=== PATIENT | male | born 1955 | race Asian ===

== ENCOUNTER 2018-07-29 20:39 | Emergency (ER) | payer OTHER ==
[~2018-07-29] VITALS: Ht 175.3 cm; Wt 54.4 kg
[2018-07-29 20:41] VITALS: Ht 175.3 cm; Wt 54.4 kg
[2018-07-29 21:03] VITALS: BP 146/67
[2018-07-29 21:31] LABS: PLATELET COUNT 251 x10^3mcL (130-400); RED CELL DISTRIBUTION WIDTH 13.4 % (11.5-14.5)
[2018-07-29 21:34] LABS: UA SPECIFIC GRAVITY >=1.030 (1.005-1.035); microscopic required? YES; urine erythrocyte 2+ (NEGATIVE)
[2018-07-29 21:41] LABS: CALCIUM 7.4 mg/dL (8.5-10.1); CARBON DIOXIDE 12.3 mmol/L (21-32); CHLORIDE SERUM 85 mmol/L (98-107); CREATININE SERUM 1.8 mg/dL (0.7-1.3); GFR1 41 mL/min; GLUCOSE SERUM 312 mg/dL (74-106); POTASSIUM SERUM 4.7 mmol/L (3.5-5.1); SODIUM SERUM 129 mmol/L (136-145)
[2018-07-29 21:46] LABS: ALKALINE PHOSPHATASE 56 U/L (46-116); ALT/SGPT 43 U/L (16-63); AST/SGOT 82 U/L (15-37); BILIRUBIN TOTAL 0.59 mg/dL (0.20-1.00); TOTAL PROTEIN, SERUM 7.6 g/dL (6.4-8.2)
[2018-07-29 21:47] LABS: ALBUMIN 3.2 g/dL (3.4-5.0)
[2018-07-29 21:56] LABS: BAND NEUTROPHIL 8 % (0-10); BASOPHIL 0 % (0-2); MONOCYTE 5 % (0-7); PLATELET MORPHOLOGY PLATELETS NORMAL; SEGMENTED NEUTROPHILS 77 % (37-75); rbc morphology (normal/abnorm) NORMAL (NORMAL)
[2018-07-29 22:10] LABS: CK-MB 6.8 ng/mL (0-3.6)
[2018-07-29 22:25] LABS: AMPHETAMINE QUAL UR NONE DETECTED (See below)
[2018-07-29 23:05] VITALS: BP 94/40
[2018-07-30 02:00] VITALS: BP 100/48
== END 2018-07-30 02:00 | disposition short-term general hospital (02) ==
LOC: EDBD 20:39 → ED 20:39
PROVIDERS: Emergency Medicine
DX: I62.00 Nontraumatic subdural hemorrhage, unspecified (principal); I62.1 Nontraumatic extradural hemorrhage; F10.129 Alcohol abuse with intoxication, unspecified; E11.10 Type 2 diabetes mellitus with ketoacidosis without coma; J96.00 Acute respiratory failure, unspecified whether with hypoxia or hypercapnia
CPT/HCPCS: 31500; 36600; 82962; C9113; G0480; J1815; J2704; J3411; J3475; J3490; J7030; J7050; Q0092